=== PATIENT | male | born 1950 | race Caucasian/White ===

== ENCOUNTER 2022-04-02 11:22 | Outpatient (CLI) | payer MEDICARE, SELFPAY ==
[2022-04-02 22:26] LABS: Albumin* 4.8 g/dL (3.3-5.0); Chloride* 98 mmol/L (96-114); Sodium* 134 mmol/L (135-149)
[2022-04-02 22:27] LABS: Potassium* 4.6 mmol/L (3.6-5.1)
[2022-04-02 22:29] LABS: Alanine Aminotransferase* 42 U/L (4-50); Alkaline Phosphatase* 51 U/L (40-150); Aspartate Amino Transferase* 58 U/L (12-35); Blood Urea Nitrogen* 11 mg/dL (7-30); Carbon Dioxide* 27 mmol/L (20-32); Cholesterol* 154 mg/dL (90-199); Creatinine* 0.6 mg/dL (0.5-1.5); Estimated Glomerular Filt Rate 104 ml/min; Glucose* 206 mg/dL (60-115); Total Protein* 7.2 g/dL (6.0-8.3)
[2022-04-02 22:30] LABS: Calcium* 9.5 mg/dL (8.4-10.6); HDL Cholesterol* 53 mg/dL (>=40); LDL Cholesterol Calculated 64 mg/dL (<100); Triglycerides* 183 mg/dL (40-149)
[2022-04-02 22:46] LABS: Creatinine Urine 91.3 mg/dL; Microalbumin Creatinine Ratio 10 mg/g (0-30); Microalbumin Urine < 1 mg/dL
[2022-04-02 23:00] LABS: PSA Screen* 0.75 ng/mL (0.10-4.00)
== END 2022-04-02 11:23 | disposition home or self-care (01) ==
PROVIDERS: PCP Emergency Medicine; Visit Provider Emergency Medicine
DX: Z00.00 Encounter for general adult medical examination without abnormal findings (principal); E11.9 Type 2 diabetes mellitus without complications; E78.5 Hyperlipidemia, unspecified; I10 Essential (primary) hypertension; R74.01 Elevation of levels of liver transaminase levels; Z12.5 Encounter for screening for malignant neoplasm of prostate
CPT/HCPCS: 80053; 80061; 82043; 82570; 84153

== ENCOUNTER 2023-04-01 09:19 | Outpatient (CLI) | payer MEDICARE, SELFPAY | END 2023-04-01 09:20 | disposition home or self-care (01) | LOC: NFLDREF 04-05 02:03 | PROVIDERS: PCP Emergency Medicine; Referring Provider Emergency Medicine; Visit Provider Emergency Medicine | DX: Z00.00 Encounter for general adult medical examination without abnormal findings (principal); E11.9 Type 2 diabetes mellitus without complications; E78.5 Hyperlipidemia, unspecified; I10 Essential (primary) hypertension; R74.01 Elevation of levels of liver transaminase levels; Z12.5 Encounter for screening for malignant neoplasm of prostate | CPT/HCPCS: 80053; 80061; 82043; 82570; 84153 ==

== ENCOUNTER 2024-03-13 08:16 | Outpatient (CLI) | payer MEDICARE, SELFPAY ==
--- OUTSIDE RECORDS SUMMARY | 2024-03-14 21:56 | XMS_ITS | Data Portability ---
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 Plan of Treatment Reminders Order Date Submit Date Provider Last Modified By Organization Details Last Modified Time Details Appointments None record ed. Lab None record ed. Referral None record ed. Procedures None record ed. Surgeries None record ed. Imaging None record ed. Medication Orders None record ed. Patient TargetsNo targets recorded. Patient Instructions Encounter Date Encounter Id Patient Instructions Last Modified By Organization Details Last Modified Time 02/24/2023 [id number] S: Pt presents t o have gingival tissue checked after a traumatic event at work with a cardboard box that hit him in the face and his dentist reports it creating a lesion of concern 4 months ago. O: No signs or symptoms of any lesion today. Gingival tissues are erythemic but are generalized. Nothing different observed in the area the patient points to where the trauma took place adjacent to #11. A: Healed lesion P: No treatment recommended or discussed. If any problems occur he should return to have looked at agiain. He has no symptoms. [email or web address] Not available 02/24/2023 14:48:42 Reason for Referral None Reported. Procedures Surgical History Date Name Laterality Status Provider Name and Address Organization Details Recorded Time excision of spermatocele completed Che Farr [facility] 02/24/2023 14:08:33 Imaging Results None recorded. Procedure Notes None recorded. Medical Equipment None Reported. Allergies No known drug allergies Medications Name Sig Start Date Stop Date Status Note LastModified by Organization Details LastModified Time metformin 500 mg tablet TAKE 1 TAB BY MOUTH TWICE A DAY active Not Available Not Available No t Available lisinopril 20 mg-hydrochlo rothiazide 12.5 mg tablet TAKE 1 TABLET BY MOUTH EVERY DAY active Not Available Not Available No t Available simvastatin 20 mg tablet TAKE 1 TABLET BY MOUTH AT BEDTIME active Not Available Not Available No t Available chlorhexidin e gluconate 0.12 % mouthwash WAIT 24 HRS BEFORE STARTING , RINSE WITH 15 ML TWICE A DAY FOR 30 SECONDS FOR 2 WEEKS *DO NOT SWALLOW 02/24 completed Not Available Not Available Not Available Vitals Date Recorded Heart rate Body height Body mass index (BMI) Body weight Systolic blood pressure Diastolic blood pressure Provider Name and Address Organization Details Last Updated DateTime 3 99 /min 185.42 cm 29 kg/m2 90060.3 2 g 123 mm[Hg] 86 mm[Hg] Che Farr [facility] 14:03:07 Social History Question Answer Notes LastModified by Organizat ion Details LastModified Time Tobacco Smoking Status Never Smoker Che aguero [facility] 02/24/2023 14:08:03 What Is Your Level Of Alcohol Consumption? Moderate Information not available 02/24/2023 What Is Your Level Of Caffeine Consumption? Moderate Information not available 02/24/2023 Are You Currently Employed? Yes Information not available 02/24/2023 What Type Of Diet Are You Following? REGULAR Information not available 02/24/2023 What Is Your Occupation? Self Employed Information not available 02/24/2023 What Is Your Relationship Status? Information not available 02/24/2023 Sex: Unknown Functional Status Question Answer Note LastModified by Organization D etails LastModified Time What is your exercise level? Moderate Information not available 02/24/2023 Mental Status None recorded. Family History Relationship Description Onset Age of this Age Resolved Age Notes LastModified by Organization Details LastModified Time Paternal Uncle Diabetes mellitus ssylvers Not available 2022 14:07:33 Medical History Condition Response Coronary Artery Disease N Other N Gout N Chronic fatigue syndrome N Hyperthyroidism N Premenstrual syndrome (PMS) N MRSA N Head Trauma/Injury N Emphysema N Irritable bowel syndrome N COPD N Depression N Lung Disease N Glaucoma N Hypothyroidism N Pneumonia N Pacemaker N Orthopedic Problems N Obstructive Sleep Apnea N Anxiety Disorder N Muscle, Joint, or Bone Problems N Autoimmune disease N Vision or Eye Problems N Arthritis N Serious Illness or Injuries N Acid Reflux (GERD) N Cancer N Stroke N Eating disorder N Neck Injury N Back Injury N High Cholesterol Y Neurologic Disorder N History of chemotherapy N Liver Disease N Organ Transplant N Rheumatoid Arthritis N Headaches N Fibromyalgia N Kidney Disease N Allergies/Hayfever N Post traumatic stress disorder (PTSD) N Parkinson's Disease N Migraines N Thyroid Problems N Brain Tumors N Anemia N Multiple Sclerosis N Immune System Disorder N Meningitis N Pancreatic disease N Heart Attack (AR) N Stomach Ulcers N Back pain Y Diabetes N Bleeding Disorder N Seizures/Epilepsy N Sjogren's syndrome N Tuberculosis N AIDS/HIV N History of radiation therapy N Hyperlipidemia N Dementia N Asthma N Physical or sexual abuse N Substance Abuse N Peripheral Vascular Disease N Psoriasis N Reflux/GERD N Mental Problems N Vertigo N Sleep Disorder N GERD/Reflux N Hepatitis N Aneurysm N Neuropathy N Heart Disease Y Pulmonary Embolism N Hypertension Y Osteoporosis N Immunizations Vaccine Type Date Status Provider Name and Address Organization Details Recorded Time influenza, unspecified formulation 03/07/2022 completed NEL Kerns [facility] 02/24/2023 14:06:50 pneumococcal, unspecified formulation 02/05/2022 NEL Lopez [facility] 02/24/2023 14:07:08 Past Encounters Encounter ID Performer Location Encounter Start Date Encounter Closed Date Diagnosis/Indication Diagnosis SNOMED-CT Code Diagnosis ICD10 Code [id number] Dunia Freitas DDS [address] [place] [address] 02/24/2023 13:20:16 02/24/2023 14:24:16 Lesion of oral mucosa [id number] K13.70 Health Concerns Section Related Observation LastModified by Organization Detai ls LastModified Time None Recorded Concern Status LastModified by Organization Details LastModified Time None Recorded Advance Directives Directive None Recorded Payers Encounter Date Sequence Insurance Name Policy Number Policy Pemberton Covered Member ID Pemberton Member ID Guarantor Name 02/24/2023 1 [place] (MEDICARE [place]ACEMENT PPO) [id number] Armand Gomez [id number] Armand Gomez
--- OUTSIDE RECORDS SUMMARY | 2024-03-14 21:56 | XMS_ITS | Continuity of Care Document ---
Author Organization [facility] Address [address] [address] [place] [address] Phone Care Team Providers Care Hardwood Floor Installer Name Role Phone Haider Momin MD Unavailable Unavailable Procedures Procedure Date Colonoscopy Flex; W/remov Les- 12 Advance Directives Directive Yes / No Effective Date File Name No Information Encounters Encounter Description Practice Location Reason(s) For Visit Diagnoses Date Provider Providers Copied on Encounter [facility] [place], [address] [address], [place], [place], [id number], [place] tel:[phone] [facility] No Information Merrill Maloney. [address] [facility], [facility] [address], [place], [place], [id number], [place]. tel:[phone] Family History Family Member Type Diagnosis Age At Onset No Information Payers Payer name Insurance type Covered alliance party ID Authoriza tion(s) Preferred One Admin [facility] CI [id number] Social History Type Description Quantity Date Captured Comments Sex Male Smoking Status No Information Chief Complaint And Reason For Visit No Information Reason For Referral Reason For Referral No Information History Of Present Illness Encounter Date Complaint History Of Prese nt Illness No Information Functional Status Date Functional Assessmen t No Information Instructions Date Instruction Additional Infor mation No Information Assessments Type Assessment Date No Information Patient Care Teams Name Effective Dates (start - stop) Status Members No Information
--- OUTSIDE RECORDS SUMMARY | 2024-03-14 21:56 | XMS_ITS | Clinical Summary ---
Author Organization [facility] Address [place], [place] [address] Care Team Providers Care Precision Honing Machine Operator Name Role Phone Clinic, No Pcp Or Primary Care Provider Unavaila ble Allergies No known active allergies Medications Medication Sig Dispensed Refills Start Date End Date Status lisinopril-hydrochloro thiazide 20-12.5 mg tablet (PRINZIDE) Take 1 Tablet by mouth once daily. Active metFORMIN (GLUCOPHAGE) 500 mg tablet Take 500 mg by mouth two times daily with meals. Active simvastatin (ZOCOR) 20 mg tablet Take 20 mg by mouth at bedtime. Active Active Problems No known active problems Social History Tobacco Use Types Packs/Day Years Used Date Smoking Tobacco: Never Assessed Social Connections Answer Date Recorded Frequency of Communication with Friends and Fami ly Not on file 05/13/2023 Sex and Gender Information Value Date Recorded Sex Assigned at Not on file Gender Identity Not on file Sexual Orientation Not on file Obstetrics History Plan of Treatment Health Maintenance Due Date Last Done Comments Tdap 1962 Depression screening for age 12+ 1963 BMI (ht and wt on same day) for age 18+ 1969 Hepatitis C screening for age 18-79 1969 Tetanus booster 1971 Colonoscopy through age 75 1996 Lipids for age 45-75 1996 Zoster (shingles) series for age 50+ (1 of 2) 2001 Medicare Wellness for age 65+ 2016 Pneumococcal series for age 65+ (1 of 1 - PCV) 2016 COVID-19 vaccine series (2023- season) 2024 05/17/2021, 08/29/2020, 08/08/2020 Influenza for age 65+ 02/06/2024 Care Teams Precision Honing Machine Operator Relationship Specialty Start Date End Date Clinic, No Pcp Or . PCP - General 05/11/23
== END 2024-03-13 08:17 | disposition home or self-care (01) ==
LOC: NFLDREF 03-14 21:55
PROVIDERS: PCP Emergency Medicine; Referring Provider Emergency Medicine; Visit Provider Emergency Medicine
DX: E11.9 Type 2 diabetes mellitus without complications (principal); E78.2 Mixed hyperlipidemia; I10 Essential (primary) hypertension; Z12.5 Encounter for screening for malignant neoplasm of prostate
CPT/HCPCS: 80053; 80061; 82043; 82570; G0103

== ENCOUNTER 2024-03-15 10:27 | Outpatient (CLI) | payer MEDICARE, SELFPAY ==
--- OUTSIDE RECORDS SUMMARY | 2024-03-15 10:35 | XMS_ITS | Continuity of Care Document ---
Author Organization [facility] Address [address] [address] [place] [address] Phone Care Team Providers Care Gamewell Operator Name Role Phone Haider Momin MD Unavailable Unavailable Procedures Procedure Date Colonoscopy Flex; W/remov Les- 12 Advance Directives Directive Yes / No Effective Date File Name No Information Encounters Encounter Description Practice Location Reason(s) For Visit Diagnoses Date Provider Providers Copied on Encounter [facility] [place], [address] [address], [place], [place], [id number], [place] tel:[phone] [facility] No Information Merrill Maloney. [address] [facility], [facility] [address], [place], [place], [id number], [place]. tel:[phone] Family History Family Member Type Diagnosis Age At Onset No Information Payers Payer name Insurance type Covered republican ID Authoriza tion(s) Preferred One Admin [facility] CI [id number] Social History Type Description Quantity Date Captured [...]
--- OUTSIDE RECORDS SUMMARY | 2024-03-15 10:35 | XMS_ITS | Clinical Summary ---
Author Organization [employer] [facility] Address [place], [place] [address] Care Team Providers Care Design Printing Machine Set Up Operator Name Role Phone Clinic, No Pcp [...] Influenza for age 65+ 02/06/2024 Care Teams Design Printing Machine Set Up Operator Relationship Specialty Start Date End Date Clinic, No Pcp Or . PCP - General 05/11/23
== END 2024-03-15 10:28 | disposition home or self-care (01) ==
LOC: LKVREF 10:27
PROVIDERS: PCP Emergency Medicine; Visit Provider Emergency Medicine
DX: Z00.00 Encounter for general adult medical examination without abnormal findings (principal); E11.9 Type 2 diabetes mellitus without complications; E78.5 Hyperlipidemia, unspecified; I10 Essential (primary) hypertension
CPT/HCPCS: 82043; 82570

== ENCOUNTER 2024-10-11 09:53 | Outpatient (CLI) | payer MEDICARE, SELFPAY | END 2024-10-11 09:54 | disposition home or self-care (01) | PROVIDERS: PCP Emergency Medicine; Visit Provider Emergency Medicine | DX: R20.2 Paresthesia of skin (principal) | CPT/HCPCS: 82607 ==

== ENCOUNTER 2025-03-14 10:26 | Outpatient (CLI) | payer MEDICARE, SELFPAY | END 2025-03-14 10:27 | disposition home or self-care (01) | LOC: NFLDREF 03-19 04:54 | PROVIDERS: PCP Nurse Practitioner Family; Referring Provider Emergency Medicine; Visit Provider Nurse Practitioner Family | DX: E78.2 Mixed hyperlipidemia (principal); R74.01 Elevation of levels of liver transaminase levels; E11.9 Type 2 diabetes mellitus without complications; Z12.5 Encounter for screening for malignant neoplasm of prostate | CPT/HCPCS: 80053; 80061; 82043; 82570; G0103 ==